=== PATIENT | female | born 1955 | race Caucasian/White ===

== ENCOUNTER 2016-08-20 10:51 | Emergency (ER) | payer OTHER ==
[~2016-08-20] VITALS: Ht 158.8 cm; Wt 67.5 kg
[2016-08-20 10:57] VITALS: TEMP 37; Ht 158.8 cm; Wt 67.5 kg
[2016-08-20] MEDS ORDERED: SODIUM CHLORIDE 0.9% 1000ML 1,000 ML IV STA (11:08)
[2016-08-20] MEDS ORDERED: ONDANSETRON INJ 2 MG/ML 2 ML VIAL IV STA (11:08)
[2016-08-20] MEDS ORDERED: MoRPHine SULFATE 4 MG/ML 1 ML CARP\\VIAL IV PRN (11:15)
[2016-08-20 11:45] LABS: BASO % 0.2 %; BASO ABS # 0.01 K/uL (0-0.2); COMPLETE YES; EOS % 1.2 %; HEMATOCRIT 43.6 % (37-47); IG% 0.2 %; LYMPH % 38.2 %; LYMPH ABS # 1.61 K/uL (1.2-3.4); MEAN CELL VOLUME 84.3 fL (80-100); MEAN CORPUSCULAR HEMOGLOBIN 29.2 pg (25-34); MEAN CORPUSCULAR HGB CONC 34.6 g/dl (32-36); MEAN PLATELET VOLUME 8.8 fL (7.4-10.4); MONO % 11.6 %; NEUT % 48.6 %; PLATELET COUNT 229 K/uL (130-400); RED BLOOD COUNT 5.17 M/uL (4.2-5.4); WHITE BLOOD COUNT 4.22 K/uL (4.8-10.8)
[2016-08-20] MEDS ORDERED: KETOROLAC TROMETHAMINE 30 MG/ML VIAL IV STA (11:48)
[2016-08-20] MEDS ORDERED: GLIM4TAB PO (11:58)
[2016-08-20] MEDS ORDERED: METF750T PO (11:58)
[2016-08-20] MEDS ORDERED: SACC250C PO (11:58)
[2016-08-20] MEDS ORDERED: PANC1200 PO (11:58)
[2016-08-20] MEDS ORDERED: OMEP40CA41 PO (11:58)
[2016-08-20] MEDS ORDERED: FENO134C2 PO (11:58)
--- NOTE | 2016-08-20 12:01 | DIAGNOSTIC IMAGING REPORT ---
SINGLE VIEW CHEST CLINICAL HISTORY: Generalized abdominal pain. Diarrhea. FINDINGS: An AP, portable, upright chest radiograph is obtained. No prior studies are available for comparison at the time of dictation. The cardiomediastinal silhouette is unremarkable. There is mild elevation of left hemidiaphragm with left basilar atelectasis. The lungs and pleural spaces are otherwise clear. No pneumothorax is seen. The skeletal structures are osteopenic. The bony thorax is grossly intact. IMPRESSION: No active disease in the chest. Electronically signed by: Dominick Beal M.D. 08/20/2016 12:00 PM Dictated Date/Time: 08/20/2016 12:00 PM
[2016-08-20 12:04] LABS: BUN/CREATININE RATIO 28.9 (10-20); CALCIUM 8.5 mg/dl (8.5-10.1)
[2016-08-20] MEDS ORDERED: ONDA4TAB10 SL (12:25)
--- NOTE | 2016-08-20 12:26 | EMERGENCY ROOM VISIT NOTE ---
History Report prepared by John: Cristina Tarango Under the Supervision of: Dr. Derrick Alaniz D.O. First contact with patient: 11:00 Chief Complaint: DIARRHEA Stated Complaint: DIARRHEA,STOMACH PAIN Nursing Triage Summary: Pt here visiting from [place], states diarrhea, nausea, abd pain and sob with exertion x 3 days. H/A. Type II DM. History of Present Illness The patient is a 60 year old female who presents to the Emergency Room with complaints of persistent diarrhea over the past 3 days. She had 3 episodes today , but estimates close to 10-12 episodes of diarrhea yesterday and the day before. She also complains of weakness, calf cramping, diffuse abdominal pain and mild nausea. She notes that she has not been eating or drinking because it triggers her diarrhea. She has some shortness of breath with exertion which is unusual for her. The patient is suspicious that she may have eaten something at a hotel to cause her symptoms a few days ago. Denies chest pain or other complaints. The patient reports taking Imodium yesterday. The patient states that they have been traveling in the car between 4-8 hours a day for the past few days visiting colleges for her daughter. Source of History: patient Onset: 3 days ago Position: other (GI) Timing: other (persistent) Associated Symptoms: + SOB, + abdominal pain, + nausea, + weakness, No chest pain Note: Other symptoms: calf cramping Review of Systems See HPI for pertinent positives & negatives. A total of 10 systems reviewed and were otherwise negative. Past Medical & Surgical Medical Problems: (1) Diabetes Family History No pertinent family history stated. Social History Smoking Status: Never Smoker Marital Status: Housing Status: lives with family Current/Historical Medications Scheduled Fenofibrate (Tricor ), 134 MG PO DAILY Glimepiride (Amaryl), 4 MG PO BID Metformin Hcl (Glucophage Er), 750 MG PO BID Omeprazole (Prilosec), 40 MG PO DAILY Pancrelipase (Lipase-Protease- (Creon [id number]), 2 CAP PO TID Saccharomyces Boulardii (Florastor), 1 CAP PO BID Allergies Coded Allergies: Iodinated Diagnostic Agents (Unverified Allergy, Unknown, rash,, 08/20/16) only had reation when had to drink Morphine (Unverified Allergy, Unknown, rash, 08/20/16) Penicillins (Unverified Allergy, Unknown, rash, 08/20/16) Physical Exam Vital Signs Date Time Temp Pulse Resp B/P Pulse Ox O2 Delivery O2 Flow Rate FiO2 08/20/16 10:57 37.0 102 18 127/88 97 Room Air Physical Exam CONSTITUTIONAL/VITAL SIGNS: Reviewed / noted above. GENERAL: Non-toxic in appearance. INTEGUMENTARY: Warm, dry, and Silex. HEAD: Normocephalic. EYES: without scleral icterus or trauma. ENT/OROPHARYNX: clear and moist. LYMPHADENOPATHY/NECK: Is supple without lymphadenopathy or meningismus. RESPIRATORY: Lungs clear and equal. CARDIOVASCULAR: Regular rate and rhythm. GI/ABDOMEN: Soft, mild diffuse tenderness. No organomegaly or pulsatile mass. No rebound or guarding. Normal bowel sounds. EXTREMITIES: Warm and well perfused. No discomfort to palpation of the legs. BACK: No CVA tenderness. NEUROLOGICAL: Intact without focal deficits. PSYCHIATRIC: normal affect. MUSCULOSKELETAL: Normally developed with good muscle tone. Medical Decision & Procedures ER Provider Diagnostic Interpretation: Radiology results as stated below per my review and radiologist interpretation: SINGLE VIEW CHEST CLINICAL HISTORY: Generalized abdominal pain. Diarrhea. FINDINGS: An AP, portable, upright chest radiograph is obtained. No prior studies are available for comparison at the time of dictation. The cardiomediastinal silhouette is unremarkable. There is mild elevation of left hemidiaphragm with left basilar atelectasis. The lungs and pleural spaces are otherwise clear. No pneumothorax is seen. The skeletal structures are osteopenic. The bony thorax is grossly intact. IMPRESSION: No active disease in the chest. Electronically signed by: Dominick Beal M.D. 08/20/2016 12:00 PM Dictated Date/Time: 08/20/2016 12:00 PM Laboratory Results 08/20/16 11:25 Red Blood Count 5.17, Mean Corpuscular Volume 84.3, Mean Corpuscular Hemoglobin 29.2, Mean Corpuscular Hemoglobin Concent 34.6, Mean Platelet Volume 8.8, Neutrophils (%) (Auto) 48.6, Lymphocytes (%) (Auto) 38.2, Monocytes (%) (Auto) 11.6, Eosinophils (%) (Auto) 1.2, Basophils (%) (Auto) 0.2, Neutrophils # (Auto ) 2.05, Lymphocytes # (Auto) 1.61, Monocytes # (Auto) 0.49, Eosinophils # (Auto ) 0.05, Basophils # (Auto) 0.01 08/20/16 11:25 Test 08/20/16 11:25 08/20/16 12:00 White Blood Count 4.22 K/uL (4.8-10.8) Red Blood Count 5.17 M/uL (4.2-5.4) Hemoglobin 15.1 g/dL (12.0-16.0) Hematocrit 43.6 % (37-47) Mean Corpuscular Volume 84.3 fL (80-100) Mean Corpuscular Hemoglobin 29.2 pg (25-34) Mean Corpuscular Hemoglobin Concent 34.6 g/dl (32-36) Platelet Count 229 K/uL (130-400) Mean Platelet Volume 8.8 fL (7.4-10.4) Neutrophils (%) (Auto) 48.6 % Lymphocytes (%) (Auto) 38.2 % Monocytes (%) (Auto) 11.6 % Eosinophils (%) (Auto) 1.2 % Basophils (%) (Auto) 0.2 % Neutrophils # (Auto) 2.05 K/uL (1.4-6.5) Lymphocytes # (Auto) 1.61 K/uL (1.2-3.4) Monocytes # (Auto) 0.49 K/uL (0.11-0.59) Eosinophils # (Auto) 0.05 K/uL (0-0.5) Basophils # (Auto) 0.01 K/uL (0-0.2) RDW Standard Deviation 41.7 fL (36.4-46.3) RDW Coefficient of Variation 13.5 % (11.5-14.5) Immature Granulocyte % (Auto) 0.2 % Immature Granulocyte # (Auto) 0.01 K/uL (0.00-0.02) Anion Gap 11.0 mmol/L (3-11) Est Creatinine Clear Calc Drug Dose 55.2 ml/min Estimated GFR () 71.4 Estimated GFR (Non- 61.6 BUN/Creatinine Ratio 28.9 (10-20) Calcium Level 8.5 mg/dl (8.5-10.1) Total Bilirubin 0.5 mg/dl (0.2-1) Direct Bilirubin 0.1 mg/dl (0-0.2) Aspartate Amino Transf (AST/SGOT) 26 U/L (15-37) Alanine Aminotransferase (ALT/SGPT) 42 U/L (12-78) Alkaline Phosphatase 52 U/L (45-117) Total Protein 7.1 gm/dl (6.4-8.2) Albumin 4.1 gm/dl (3.4-5.0) Lipase 130 U/L (73-393) Laboratory results as stated above per my review. Medications Administered Medications (Trade) Dose Ordered Sig/Brian Route Start Time Stop Time Status Last Admin Dose Admin Sodium Chloride (Nss 1000ml) 1,000 ml @ 999 mls/hr Q1H1M STAT IV 08/20/16 11:08 08/20/16 12:08 DC 08/20/16 11:40 999 MLS/HR Ondansetron HCl (Zofran Inj) 4 mg NOW STAT IV 08/20/16 11:08 08/20/16 11:11 DC 08/20/16 11:41 4 MG Ketorolac Tromethamine (Toradol Inj) 30 mg NOW STAT IV 08/20/16 11:48 08/20/16 11:49 DC 08/20/16 12:02 30 MG ECG Indication: SOB/dyspnea Rate (beats per minute): 91 Rhythm: normal sinus Findings: no ectopy, other (no acute injury) ED Course 1102: Previous medical records were reviewed. The patient was evaluated in room C5. A complete history and physical examination was performed. 1108: Ordered Zofran Inj 4 mg IV, NSS 1000 ml @ 999 mls/hr IV. 1115: Ordered Morphine Sulfate 4 mg IV. 1148: Ordered Toradol Inj 30 mg IV. 1220: On reevaluation, the patient is feeling better. I discussed the results and findings with the patient. She verbalized agreement of the treatment plan. The patient was discharged home. Medical Decision Differential diagnosis: Etiologies such as gastroenteritis, food borne illness, infections, appendicitis , diverticulitis, inflammatory bowel disease, obstruction, GI bleed, biliary pathology, as well as others were entertained. This is a 60-year-old female who presents to the ED with a chief complaint of nausea and diarrhea. The patient reports 3 episodes of diarrhea today. She has had about 15 episodes of diarrhea yesterday and the day before. The patient is from out of town. She denies any chest pains. Denies any swelling in her legs. She has had some abdominal cramps related to the diarrhea but no focal tenderness or pain. Her vital signs are stable. Her physical exam revealed mild tenderness the abdomen. CBC was normal. Complete metabolic panel was unremarkable with exception of a BUN of 29. Lipase is negative. Chest x-ray did not show acute disease. EKG showed a sinus rhythm. The patient was hydrated with IV fluids. She was given IV Zofran for nausea and IV Toradol for pain. She was allergic to morphine. The patient was feeling better. A prescription for Zofran was provided. She is felt to be stable for discharge. Impression Primary Impression: Dehydration Additional Impression: Diarrhea Scribe Attestation The scribe's documentation has been prepared under my direction and personally reviewed by me in its entirety. I confirm that the note above accurately reflects all work, treatment, procedures, and medical decision making performed by me. Departure Information Dispostion Home / Self-Care Prescriptions Ondasetron Odt (ZOFRAN ODT) 4 Mg Tab 4 MG SL Q6H for Nausea, #20 TAB Prov: Derrick Alaniz D.O. 08/20/16 Referrals No Doctor, Assigned (PCP) Patient Instructions Dehydration, My [facility] Additional Instructions Zofran: Allow one tablet to dissolve under the tongue every 6 hours as needed for nausea or vomiting. Follow-up with your doctor for further care and evaluation in 1-7 days. Return to the emergency department for worsening or new symptoms or any concerns. You have been examined and treated today on an emergency basis only. This is not a substitute for, or an effort to provide, complete comprehensive medical care. It is impossible to recognize and treat all injuries or illnesses in a single emergency department visit. It is therefore important that you follow up closely with your doctor. Call as soon as possible for an appointment. Problem Qualifiers
[2016-08-20 12:38] LABS: URINE APPEARANCE CLEAR (CLEAR); URINE BILIRUBIN NEG (NEG); URINE COLOR YELLOW; URINE EPITHELIAL CELL AUTO >30 /lpf (0-5); URINE NITRITE NEG (NEG); UROBILINOGEN NEG (NEG); ZZUR CULT IF INDIC CLEAN CATCH NO
[2016-08-20 12:40] LABS: MANUAL MICROSCOPIC REQUIRED? NO; REVIEW REQ? YES
[2016-08-20 12:50] VITALS: BP 99/71; PULSE 72; O2SAT 97
== END 2016-08-20 13:08 | disposition home or self-care (01) ==
LOC: C.EDB 10:56 → C.EDC 13:08
DX: E86.0 Dehydration (principal); R19.7 Diarrhea, unspecified; E11.9 Type 2 diabetes mellitus without complications; Z79.84 Long term (current) use of oral hypoglycemic drugs; Z79.899 Other long term (current) drug therapy; Z88.0 Allergy status to penicillin; Z88.5 Allergy status to narcotic agent; Z91.09 Other allergy status, other than to drugs and biological substances